=== PATIENT | male | born 1985 | race Caucasian/White ===

== ENCOUNTER 2016-07-22 17:14 | Emergency (ER) | payer OTHER ==
[2016-07-22 17:31] VITALS: RESP 16
--- NOTE | 2016-07-22 18:05 | ED ---
Abdominal Pain HPI - General Chief Complaint: Abdominal Pain Stated Complaint: ABDOMINAL PAIN, BLOOD IN STOOL Time Seen by Provider: 07/22/16 17:44 Source: patient, RN notes reviewed Mode of arrival: ambulatory Limitations: no limitations - History of Present Illness Initial Comments: Patient is a 31-year-old male presents to the emergency room for evaluation of abdominal pain and blood in stools. Patient states after eating lunch he was experiencing lower abdominal pain. Patient states he passed a loose stool and noticed a small amount of bright red blood mixed with his stools. Patient states this worried him so he thought he should be evaluated. Patient states he is having slight left lower quadrant pain. Patient denies nausea or vomiting. Patient denies headache or dizziness. Patient denies chest pain shortness of breath. Patient denies recent travel outside of the country. Patient denies trying new foods. Patient denies recent changes in medications. Patient denies history of abdominal surgeries. Patient denies any rectal pain while making a bowel movement. Patient states denies black tarry stools. Patient denies known hemorrhoids or rectal fissures. - Related Data Previous Rx's Medication Instructions Recorded Dicyclomine [Bentyl] 10 mg PO TID PRN #12 capsule 07/22/16 Allergies Allergy/AdvReac Type Severity Reaction Status Date / Time Mushroom Allergy Swelling Verified 07/22/16 18:03 Penicillins Allergy Unknown Verified 07/22/16 18:03 Childhood Review of Systems ROS Statement: Those systems with pertinent positive or pertinent negative responses have been documented in the HPI. ROS Other: All systems not noted in ROS Statement are negative. Past Medical History Past Medical History: No Reported History History of Any Multi-Drug Resistant Organisms: None Reported Past Surgical History: No Surgical Hx Reported Past Psychological History: No Psychological Hx Reported Smoking Status: Current every day smoker Past Alcohol Use History: None Reported Past Drug Use History: Marijuana General Exam - General Exam Comments Initial Comments: Sitting in exam room, no acute distress. Limitations: no limitations General appearance: alert, in no apparent distress Head exam: Present: atraumatic, normocephalic, normal inspection Eye exam: Present: normal appearance ENT exam: Present: normal exam Neck exam: Present: normal inspection Respiratory exam: Present: normal lung sounds bilaterally. Absent: respiratory distress Cardiovascular Exam: Present: regular rate, normal rhythm, normal heart sounds GI/Abdominal exam: Present: soft, tenderness (LLQ), normal bowel sounds. Absent : distended, guarding, rebound, rigid Rectal exam: Present: normal inspection, normal rectal tone, heme (-) stool Extremities exam: Present: normal inspection Back exam: Present: normal inspection Neurological exam: Present: alert, oriented X3, CN II-XII intact, normal gait Psychiatric exam: Present: normal affect, normal mood Skin exam: Present: warm, dry, intact, normal color. Absent: rash Course Vital Signs 07/22/16 07/22/16 17:28 18:46 Temperature 97.5 F L 97.2 F L Pulse Rate 62 60 Respiratory 16 16 Rate Blood Pressure 125/74 108/59 O2 Sat by Pulse 98 97 Oximetry Medical Decision Making - Medical Decision Making Patient is a 31-year-old male presents emergency room with abdominal pain and blood in stools. Fecal occult negative. Lab work shows no concerning findings. Patient was sent home with Chrisyl and advised follow-up with primary care physician for further evaluation. Patient states he understands everything that was discussed with him. Return parameters discussed. Case discussed with Dr. López. - Lab Data Result diagrams: 07/22/16 18:05 07/22/16 18:05 Lab Results 07/22/16 07/22/16 07/22/16 Range/Units 18:05 18:05 18:05 WBC 11.1 H (3.8-10.6) k/uL RBC 4.86 (4.30-5.90) m/uL Hgb 15.0 (13.0-17.5) gm/dL Hct 44.5 (39.0-53.0) % MCV 91.7 (80.0-100.0) fL MCH 30.9 (25.0-35.0) pg MCHC 33.7 (31.0-37.0) g/dL RDW 13.2 (11.5-15.5) % Plt Count 252 (150-450) k/uL Neutrophils % 66 % Lymphocytes % 25 % Monocytes % 6 % Eosinophils % 2 % Basophils % 1 % Neutrophils # 7.3 (1.3-7.7) k/uL Lymphocytes # 2.8 (1.0-4.8) k/uL Monocytes # 0.6 (0-1.0) k/uL Eosinophils # 0.2 (0-0.7) k/uL Basophils # 0.1 (0-0.2) k/uL Sodium 140 (137-145) mmol/L Potassium 4.1 (3.5-5.1) mmol/L Chloride 109 H (98-107) mmol/L Carbon Dioxide 23 (22-30) mmol/L Anion Gap 8 mmol/L BUN 18 (9-20) mg/dL Creatinine 0.78 (0.66-1.25) mg/dL Est GFR (MDRD) Af Amer >60 (>60 ml/min/1.73 sqM) Est GFR (MDRD) Non-Af >60 (>60 ml/min/1.73 sqM) Glucose 126 H (74-99) mg/dL Calcium 9.5 (8.4-10.2) mg/dL Total Bilirubin 0.5 (0.2-1.3) mg/dL AST 27 (17-59) U/L ALT 29 (21-72) U/L Alkaline Phosphatase 56 (38-126) U/L Total Protein 7.2 (6.3-8.2) g/dL Albumin 4.3 (3.5-5.0) g/dL Amylase 71 (30-110) U/L Lipase 121 (23-300) U/L Stool Occult Blood Negative (Negative) - Radiology Data Radiology results: report reviewed, image reviewed Disposition Clinical Impression: Abdominal pain Disposition: HOME SELF-CARE Condition: Good Instructions: Abdominal Pain (ED) Additional Instructions: Take Bentyl as needed for pain. Drink plenty of water. Please follow up with primary care provider in 1-2 days. If any new symptom arises or symptoms worsen , return to ER as soon as possible. Prescriptions: Dicyclomine [Bentyl] 10 mg PO TID PRN #12 capsule PRN Reason: Pain Referrals: None,Stated [Primary Care Provider] - 1-2 days Time of Disposition: 18:48
[2016-07-22 18:09] LABS: Basophils # (A) 0.1 k/uL (0-0.2); Basophils % (A) 1 %; Eosinophils # (A) 0.2 k/uL (0-0.7); Eosinophils % (A) 2 %; HCT 44.5 % (39.0-53.0); HDW 2.48; Luc # (Auto) 0.16; Luc % (Auto) 2; Lymphocytes # (A) 2.8 k/uL (1.0-4.8); Lymphocytes % (A) 25 %; MCH 30.9 pg (25.0-35.0); MCHC 33.7 g/dL (31.0-37.0); MCV 91.7 fL (80.0-100.0); Mean Platelet Volume 6.9; Monocytes # (A) 0.6 k/uL (0-1.0); Monocytes % (A) 6 %; Neutrophils # (A) 7.3 k/uL (1.3-7.7); Neutrophils % (A) 66 %; RBC 4.86 m/uL (4.30-5.90); RDW 13.2 % (11.5-15.5); WBC 11.1 k/uL (3.8-10.6); WBC (Perox) 10.96
--- NOTE | 2016-07-22 18:26 | XR ---
EXAMINATION TYPE: XR KUB DATE OF EXAM: 07/22/2016 6:14 PM CLINICAL HISTORY: Rectal bleeding and lower abdominal pain. TECHNIQUE: 2 upright KUB images of the abdomen are obtained. COMPARISON: CT abdomen and pelvis March 03, 2015 FINDINGS: Scattered gas is seen in non-distended small bowel loops. Gas and fecal material is seen in non-distended colon. There is no visceromegaly, pneumoperitoneum, or abnormal calcification appr eciated. The lung bases are clear and the osseous structures are intact. IMPRESSION: Overall nonobstructive bowel gas pattern.
[2016-07-22 18:27] LABS: ALT 29 U/L (21-72); AST 27 U/L (17-59); Alkaline Phosphatase 56 U/L (38-126); Amylase 71 U/L (30-110); Anion Gap 8 mmol/L; Blood Urea Nitrogen 18 mg/dL (9-20); Calcium 9.5 mg/dL (8.4-10.2); Carbon Dioxide 23 mmol/L (22-30); Chloride 109 mmol/L (98-107); Glucose 126 mg/dL (74-99); Non-African American GFR(MDRD) >60 (>60 ml/min/1.73 sqM); Potassium 4.1 mmol/L (3.5-5.1); Sodium 140 mmol/L (137-145); Total Bilirubin 0.5 mg/dL (0.2-1.3); Total Protein 7.2 g/dL (6.3-8.2)
[2016-07-22] MEDS ORDERED: DICYCLOMINE 10 MG CAP PO STA (18:39)
[2016-07-22 18:49] VITALS: BP 108/59; PULSE 60; TEMP 97.2
== END 2016-07-22 18:58 | disposition home or self-care (01) ==
LOC: EC 17:14
DX: R10.32 Left lower quadrant pain (principal); R19.5 Other fecal abnormalities; F17.200 Nicotine dependence, unspecified, uncomplicated; Z88.0 Allergy status to penicillin; Z91.018 Allergy to other foods
CPT/HCPCS: 36415; 74000; 80053; 82150; 82272; 83690; 85025; 99284

== ENCOUNTER 2021-07-25 18:30 | Emergency (ER) | payer OTHER ==
[2021-07-25 19:27] VITALS: RESP 18
[2021-07-25] MEDS ORDERED: AMOXICILLIN 875 MG TAB PO STA (20:35)
[2021-07-25] MEDS ORDERED: KETOROLAC 15 MG/ML 1 ML VIAL IM STA (20:37)
--- NOTE | 2021-07-25 20:41 | ED ---
ENT HPI - General Chief complaint: ENT Stated complaint: Lt Ear Pain Time Seen by Provider: 07/25/21 20:17 Source: patient Mode of arrival: ambulatory Limitations: no limitations - History of Present Illness Initial comments: Patient is a 36-year-old male who presents with a one-week history of left ear pain. Patient states he has never had an ear infection before. No recent swimming. Patient has no other concerns. He denies fever, chills, congestion, runny nose, sore throat, shortness of breath, chest pain, abdominal pain. No recent sick contacts. - Related Data Previous Rx's Medication Instructions Recorded Dicyclomine [Bentyl] 10 mg PO TID PRN #12 capsule 07/22/16 Azithromycin [Zithromax Z-pack (6 250 mg PO DIRECTED 5 Days #6 tab 07/25/21 tabs)] Allergies Allergy/AdvReac Type Severity Reaction Status Date / Time Mushroom Allergy Swelling Verified 07/25/21 19:24 Penicillins Allergy Unknown Verified 07/25/21 19:24 Childhood Review of Systems ROS Statement: Those systems with pertinent positive or pertinent negative responses have been documented in the HPI. ROS Other: All systems not noted in ROS Statement are negative. Past Medical History Past Medical History: No Reported History History of Any Multi-Drug Resistant Organisms: None Reported Past Surgical History: No Surgical Hx Reported Past Psychological History: No Psychological Hx Reported Smoking Status: Current every day smoker Past Alcohol Use History: None Reported Past Drug Use History: Marijuana General Exam Limitations: no limitations General appearance: alert, in no apparent distress Head exam: Present: atraumatic, normocephalic, normal inspection Eye exam: Present: normal appearance, PERRL, EOMI. Absent: scleral icterus, conjunctival injection, periorbital swelling ENT exam: Present: normal oropharynx, normal external ear exam. Absent: TM's normal bilaterally (Left tympanic membrane is opaque without erythema or bulging. The ear canal is erythematous with no discharge) Respiratory exam: Present: normal lung sounds bilaterally. Absent: respiratory distress, wheezes, rales, rhonchi, stridor Cardiovascular Exam: Present: regular rate, normal rhythm, normal heart sounds. Absent: systolic murmur, diastolic murmur, rubs, gallop, clicks GI/Abdominal exam: Present: soft, normal bowel sounds. Absent: distended, tenderness, guarding, rebound, rigid Neurological exam: Present: alert, oriented X3, CN II-XII intact Psychiatric exam: Present: normal affect, normal mood Skin exam: Present: warm, dry, intact, normal color. Absent: rash Course Vital Signs 07/25/21 07/25/21 19:24 21:02 Temperature 98 F 98.0 F Pulse Rate 82 68 Respiratory 18 18 Rate Blood Pressure 100/62 115/76 O2 Sat by Pulse 98 99 Oximetry Medical Decision Making - Medical Decision Making This is a 36-year-old male who presents with left ear pain 1 week. Thorough history and examination were performed. No precipitating factors. Otoscopic examination of the left ear reveals an opaque tympanic membrane without erythema or bulging. The ear canal is erythematous without discharge. Patient of the tragus does not cause pain. There is some concern for acute otitis media. Patient's is due to have her baby July 30. Patient expressed a concern that he will get the baby sick. I will cover for bacterial etiology with azithromycin since patient has penicillin allergy. Return parameters discussed. Patient verbalizes understanding and is agreeable to this plan. Dr. Hong is my attending. Disposition Clinical Impression: Otitis media Disposition: HOME SELF-CARE Condition: Good Additional Instructions: Please take medication as directed. Take Motrin or Advil as needed for pain. Return to the emergency department if you experience new, concerning, or worsening symptoms. Prescriptions: Azithromycin [Zithromax Z-pack (6 tabs)] 250 mg PO DIRECTED 5 Days #6 tab Is patient prescribed a controlled substance at d/c from ED?: No Referrals: None,Stated [Primary Care Provider] - 1-2 days Time of Disposition: 20:41
[2021-07-25] MEDS ORDERED: AZITHROMYCIN 500 MG TAB PO STA (20:48)
[2021-07-25 21:04] VITALS: BP 115/76; PULSE 68; TEMP 98
== END 2021-07-25 21:04 | disposition home or self-care (01) ==
LOC: EC 18:30
DX: H66.92 Otitis media, unspecified, left ear (principal); F17.200 Nicotine dependence, unspecified, uncomplicated; F12.90 Cannabis use, unspecified, uncomplicated; Z88.0 Allergy status to penicillin
CPT/HCPCS: 96372; 99282